=== PATIENT | male | born 1960 | race Caucasian/White ===

== ENCOUNTER → 2021-06-26 | Outpatient (CLI) | payer BC ==
--- NOTE | 2021-06-26 09:09 | RAD ---
Exam Date: 06/26/2021 6:47 AM US ABDOMEN COMPLETE Indication: Reason: NAUSEA / Spl. Instructions: / History: . TECHNIQUE: Multiple longitudinal and transverse sonographic images of the abdomen are submitted for interpretation. FINDINGS: The liver is normal in size but diffusely increased in echogenicity and heterogeneous in echotexture. The portal vein is patent with hepatopetal flow. No focal intrahepatic abnormality is seen. The gallbladder is normal, without gallstones, gallbladder wall thickening or pericholecystic fluid. Common bile duct is not well-visualized due to overlying bowel gas. The spleen is normal in size and echogenicity. The visualized abdominal aorta, inferior vena cava an d pancreas are within normal limits. There is no upper abdominal ascites. The kidneys are normal in appearance, with the right kidney measuring 11.7 cm and the left kidney measuring 12.4 cm. IMPRESSION: Diffusely increased hepatic echogenicity and heterogeneous echotexture, consistent with underlying fa tty infiltration and/or hepatocellular disease. This limits sonographic sensitivity. No suspicious liver lesions are identified. The common bile duct is not well visualized due to overlying bowel gas. Electronically signed by: Conor Alvarez MD (06/26/2021 9:06 AM) [id number]
== END ==
LOC: US 06:38
PROVIDERS: ATTEND Internal Medicine Gastroenterology
DX: R11.0 Nausea (principal)
CPT/HCPCS: 76700